=== PATIENT | female | born 1985 | race Caucasian/White ===

== ENCOUNTER 2017-03-21 18:44 | Emergency (ER) | payer MEDICAID ==
[~2017-03-21] VITALS: Ht 160 cm; Wt 122.1 kg
[~2017-03-21 18:44] MED LIST: CYCL-1 PO; FLOOS OT; IBUP-1051 PO; IBUP-1984 PO; NO HOME MEDS; ZOF4T PO
[2017-03-21] MEDS ORDERED: acetaminophen 325mg tablet PO STA (19:34)
[2017-03-21] MEDS ORDERED: normal saline 1000ML IV soln IV ONE (19:35)
[2017-03-21 20:40] LABS: BASOPHILS % (AUTO) 0.1 % (0-1); EOSINOPHILS % (AUTO) 0.1 % (0-6); HEMATOCRIT 38.3 % (35.0-45.0); HEMOGLOBIN 12.6 g/dl (12.0-16.0); LYMPHOCYTES # (AUTO) 1.5 X10'3 (1.1-4.8); LYMPHOCYTES % (AUTO) 23.7 % (21-51); MEAN CORPUSCULAR HGB CONC 32.8 % (33.0-36.5); MEAN CORPUSCULAR VOLUME 79.3 FL (78-98); MEAN PLATELET VOLUME 8.1 FL (7.4-10.4); MONOCYTES # (AUTO) 0.7 X10'3 (0-0.9); MONOCYTES % (AUTO) 10.4 % (2-12); NEUTROPHILS # (AUTO) 4.1 X10'3 (1.8-7.7); NEUTROPHILS % (AUTO) 65.7 % (42-75); PLATELET COUNT 236 X10'3 (140-440); RED BLOOD COUNT 4.83 X10'6 (4.20-5.60); RED CELL DISTRIBUTION WIDTH 15.1 % (11.5-14.5); WHITE BLOOD COUNT 6.3 X10'3 (4.5-11.0)
[2017-03-21 20:53] LABS: INR 1.1 INR; PARTIAL THROMBOPLASTIN TIME 29 SECONDS (22-32); PROTHROMBIN TIME 11.1 SECONDS (9.0-12.0)
[2017-03-21 20:54] LABS: ALANINE AMINOTRANSFERASE 24 U/L (12-78); ALBUMIN 3.2 G/DL (3.4-5.0); ALBUMIN/GLOBULIN RATIO 0.8 (1.1-1.5); ALKALINE PHOSPHATASE 73 IU/L (46-116); ANION GAP 8 (8-16); ASPARTATE AMINO TRANSFERASE 20 U/L (10-37); BILIRUBIN,TOTAL 0.2 MG/DL (0.1-1.0); BLOOD UREA NITROGEN 8 MG/DL (7-18); CHLORIDE 105 MMOL/L (99-107); CREATININE 0.89 MG/DL (0.40-0.90); GLUCOSE 103 MG/DL (70-104); POTASSIUM 3.3 MMOL/L (3.5-5.1); SODIUM 140 MMOL/L (135-145); TOTAL CARBON DIOXIDE 26.9 MMOL/L (24-32); TOTAL PROTEIN 7.4 G/DL (6.4-8.2); eGFR 75 ML/MIN
[2017-03-21] MEDS ORDERED: ACET-2119 PO (22:18)
[2017-03-21] MEDS ORDERED: GUAI120L55 PO (22:18)
[2017-03-21 22:54] VITALS: BP 120/54
[2017-03-23] MEDS ORDERED: BENZ-16 PO (23:21)
== END 2017-03-21 22:56 | disposition home or self-care (01) ==
LOC: ER 18:45
DX: B34.9 Viral infection, unspecified (principal); J06.9 Acute upper respiratory infection, unspecified; G89.29 Other chronic pain; M54.5 Low back pain; M85.80 Other specified disorders of bone density and structure, unspecified site; Z98.890 Other specified postprocedural states; Z88.2 Allergy status to sulfonamides
CPT/HCPCS: 36415; 80053; 85025; 85610; 85730; 87081; 87502; 87503; 87880; 96360; 99284; J7030

== ENCOUNTER 2017-10-06 12:07 | Emergency (ER) | payer MEDICAID ==
[~2017-10-06] VITALS: Ht 157.5 cm; Wt 121.8 kg
[~2017-10-06 12:07] MED LIST changes: +GUAI120L55 PO
[2017-10-06] MEDS ORDERED: IBUP-1984 PO (14:24)
[2017-10-06] MEDS ORDERED: CYCL-1 PO (14:24)
[2017-10-06 14:40] VITALS: BP 126/44
== END 2017-10-06 14:40 | disposition home or self-care (01) ==
LOC: ER 12:07
DX: M54.5 Low back pain (principal); G89.29 Other chronic pain; Z98.890 Other specified postprocedural states; Z88.2 Allergy status to sulfonamides; Z79.899 Other long term (current) drug therapy
CPT/HCPCS: 99283

== ENCOUNTER 2018-05-12 16:43 | Emergency (ER) | payer MEDICAID ==
[~2018-05-12] VITALS: Ht 162.6 cm; Wt 136.0 kg
[2018-05-12] MEDS ORDERED: LORazepam 2 mg/ml vial ONE (17:13)
[2018-05-12 17:25] LABS: BASOPHILS # (AUTO) 0.1 X10'3 (0-0.2); BASOPHILS % (AUTO) 0.5 % (0-1); EOSINOPHILS # (AUTO) 0.2 X10'3 (0-0.9); EOSINOPHILS % (AUTO) 1.7 % (0-6); HEMATOCRIT 42.4 % (35.0-45.0); LYMPHOCYTES # (AUTO) 4.5 X10'3 (1.1-4.8); LYMPHOCYTES % (AUTO) 39.2 % (21-51); MEAN CORPUSCULAR HEMOGLOBIN 26.9 PG (27.0-31.0); MEAN CORPUSCULAR VOLUME 81.5 FL (78-98); MEAN PLATELET VOLUME 9.1 FL (7.4-10.4); MONOCYTES # (AUTO) 0.7 X10'3 (0-0.9); MONOCYTES % (AUTO) 6.3 % (2-12); NEUTROPHILS % (AUTO) 52.3 % (42-75); PLATELET COUNT 292 X10'3 (140-440); RED CELL DISTRIBUTION WIDTH 14.4 % (11.5-14.5); WHITE BLOOD COUNT 11.5 X10'3 (4.5-11.0)
--- NOTE | 2018-05-12 17:35 | NUR ---
Patient crying and saying "just kill me, or let me go home so I can kill myself." RN gave patient an injection of 2 mg Ativan per [facility]ush who walked in to assess patient while patient is crying. Patient calmed down after the injection. Continue to monitor.
[2018-05-12 17:43] LABS: ALANINE AMINOTRANSFERASE 40 U/L (12-78); ALBUMIN 3.5 G/DL (3.4-5.0); ALBUMIN/GLOBULIN RATIO 0.7 (1.1-1.5); ALKALINE PHOSPHATASE 93 IU/L (46-116); ANION GAP 14 (8-16); BILIRUBIN,TOTAL 0.4 MG/DL (0.1-1.0); BLOOD UREA NITROGEN 14 MG/DL (7-18); BUN/CREATININE RATIO 16.3 (6.6-38.0); CHLORIDE 107 MMOL/L (99-107); CREATININE 0.86 MG/DL (0.40-0.90); GLUCOSE 91 MG/DL (70-104); SODIUM 146 MMOL/L (135-145); TOTAL CARBON DIOXIDE 25.2 MMOL/L (24-32); TOTAL PROTEIN 8.2 G/DL (6.4-8.2); eGFR 77 ML/MIN
[2018-05-12 17:45] LABS: ASPARTATE AMINO TRANSFERASE 31 U/L (10-37); POTASSIUM 4.6 MMOL/L (3.5-5.1)
[2018-05-12 17:51] LABS: ETHANOL < 0.010 GM/DL (0.0-0.010)
--- NOTE | 2018-05-12 18:51 | NUR ---
The patient is sleeping and did not respond when approached. She appears sedated from medications given earlier.
--- NOTE | 2018-05-12 22:06 | NUR ---
The patient appears to be asleep
--- NOTE | 2018-05-12 23:33 | NUR ---
The patient appears to be sleeping
--- NOTE | 2018-05-13 01:47 | NUR ---
Telepsychiatry consult requested
--- NOTE | 2018-05-13 01:52 | NUR ---
Attempted to wake patient for urine specimen but she appears to be sleeping soundly and only stirred slightly. BP 111/75 HR 84 and 02 sat 96% on room air.
--- NOTE | 2018-05-13 02:19 | NUR ---
Assumed care of patient, pt. continues to sleep, laying on her back, rr even and unlabored.
--- NOTE | 2018-05-13 04:11 | NUR ---
Pt. continues to sleep on her back, no s/s of distress.
--- NOTE | 2018-05-13 05:48 | NUR ---
With much prompting by staff r/t pt. resistance "I'm too tired," obtained urine sample and sent to lab. Pt. returned back to bed. Will endorese to AM shift need for Telepsych consult when pt. is awake.
[2018-05-13 06:04] LABS: CLARITY,URINE SLIGHTLY CLOUDY (Clear); COLOR,URINE YELLOW (Yellow); GLUCOSE, URINE NEGATIVE (Neg); KETONES,URINE NEGATIVE (Neg); LEUKOCYTE ESTERASE ,URINE NEGATIVE (Neg); NITRITES, URINE NEGATIVE (Neg); OCCULT BLOOD,URINE NEGATIVE (Neg); PROTEIN,URINE NEGATIVE (Neg); UROBILINOGEN,URINE 0.2 E.U/dL (0.2-1.0)
[2018-05-13 06:05] LABS: UA COLLECTION TYPE CLN CATCH MIDSTREAM
[2018-05-13 06:07] LABS: URINE HCG NEGATIVE (NEG)
[2018-05-13 06:15] LABS: BACTERIA,URINE NONE SEEN /HPF (Neg); MUCUS STRANDS MODERATE /LPF (Neg); RBC,URINE 0-2 /HPF (0-2); SQUAMOUS EPITHELIAL CELL,UR MODERATE /LPF (FEW); WBC,URINE 0-4 /HPF (0-4)
[2018-05-13 06:18] LABS: URINE AMPHETAMINE SCREEN POSITIVE (Neg); URINE BARBITUATE SCREEN NEGATIVE (Neg); URINE BENZODIAZEPINES SCREEN NEGATIVE (Neg); URINE CANNABINOID SCREEN NEGATIVE (Neg); URINE COCAINE SCREEN NEGATIVE (Neg); URINE METHADONE SCREEN NEGATIVE (Neg); URINE OPIATE SCREEN NEGATIVE (Neg); URINE PHENCYCLIDINE SCREEN NEGATIVE (Neg)
[2018-05-13] MEDS ORDERED: LORazepam 0.5 MG tablet PO ONE (13:05)
--- NOTE | 2018-05-13 14:03 | NUR ---
PT IS SLEEPING, RESPIRATIONS SPONTENOUS, EVEN, AND UNLABORED, NO S/S OF DISTRESS DISCOMFORT OR AGITATION AT THIS TIME.
[2018-05-13] MEDS ORDERED: LORazepam 2 mg/ml vial IM ONE (15:25)
--- NOTE | 2018-05-13 19:00 | NUR ---
The patient is sitting up on her and eating dinner. She is asking the arcade technician if she can go home.
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
--- NOTE | 2018-05-13 19:45 | NUR ---
Sister: Anastasia [phone]
[2018-05-13] MEDS ORDERED: ACET-2119 PO (20:32)
[2018-05-13] MEDS ORDERED: GABA-532 PO (20:32)
[2018-05-13] MEDS ORDERED: VENL37.55 PO (20:32)
--- NOTE | 2018-05-13 22:00 | NUR ---
The patient is currently sleeping.
--- NOTE | 2018-05-13 22:58 | NUR ---
The patient is sedated from the ativan and she still has not had her telepsych interview as ordered. Dr. Mcfadden made aware of the telepsych not being completed but her home med rec and been completed using the external med history and her home medications were ordered.
--- NOTE | 2018-05-14 00:15 | NUR ---
The patient appears to be sleeping
--- NOTE | 2018-05-14 01:57 | NUR ---
The patient is currently sleeping
--- NOTE | 2018-05-14 03:18 | NUR ---
Report to Osmar Arnold RN
--- NOTE | 2018-05-14 04:55 | NUR ---
The patient appears to be sleeping
--- NOTE | 2018-05-14 06:38 | NUR ---
Patient sleeping supine. No restlessness/distress observed. Continue to monitor.
[2018-05-14] MEDS ORDERED: gabapentin 300mg capsule PO SCH (08:00)
[2018-05-14] MEDS ORDERED: acetaminophen 325mg tablet PO SCH (08:00)
[2018-05-14] MEDS ORDERED: venlafaxine XR 37.5mg cap (Q24H) PO SCH (08:00)
--- NOTE | 2018-05-14 08:10 | NUR ---
RN spoke to patient and patient refused her medication. Patient states she is not going to [facility] because she has to pay her rent today. RN explained that she is on a legal hold and the RN cannot remove it. Continue to monitor.
[2018-05-14 09:05] VITALS: BP 114/76
--- NOTE | 2018-05-14 09:40 | NUR ---
Patient got dressed to go to [facility] [place]. Patient states she is missing her EBT card and her I.D. Patient states they were in her pocket and now they are go. Tech looked at the belongings list and didn't see cards listed. BRENDA Parker triaged patient who was brought by [employer] and doesn't remember cards when pt's clothes were removed, but RN did not do the belongings list. RN called [facility] [employer] who looked for items and did not find any.
--- NOTE | 2018-05-14 10:05 | NUR ---
Patient's and 3 children visiting patient. Patient is tearful but calm. Patient awaiting [facility] concrete mixer truck driver to drive patient to [place] [facility]. Continue to monitor.
== END 2018-05-14 10:45 ==
LOC: ER 16:44
DX: R45.851 Suicidal ideations (principal); F23 Brief psychotic disorder; G89.29 Other chronic pain; F32.9 Major depressive disorder, single episode, unspecified; R06.4 Hyperventilation; Z98.890 Other specified postprocedural states; Z88.2 Allergy status to sulfonamides; Z79.899 Other long term (current) drug therapy
CPT/HCPCS: 36415; 80053; 80305; 80320; 81001; 81025; 84443; 85025; 96372; 99285; J2060

== ENCOUNTER 2018-05-28 13:35 | Emergency (ER) | payer MEDICAID ==
[~2018-05-28 13:35] MED LIST changes: +ACET-2119 PO; -CYCL-1 PO; -FLOOS OT; +GABA-532 PO; -GUAI120L55 PO; -IBUP-1051 PO; -IBUP-1984 PO; -NO HOME MEDS; +VENL37.55 PO; -ZOF4T PO
--- NOTE | 2018-05-28 15:17 | NUR ---
NIL X3 [id number]
== END 2018-05-28 15:23 | disposition left against medical advice (07) ==
LOC: ER 13:36
DX: H57.89 Other specified disorders of eye and adnexa (principal); Z53.21 Procedure and treatment not carried out due to patient leaving prior to being seen by health care provider

== ENCOUNTER 2019-01-01 13:34 | Emergency (ER) | payer MEDICAID ==
[~2019-01-01] VITALS: Ht 158.8 cm; Wt 118.2 kg
[~2019-01-01 13:34] MED LIST changes: +ONDA8TAB6 PO
[2019-01-01 14:13] LABS: BASOPHILS # (AUTO) 0.1 X10'3 (0-0.2); BASOPHILS % (AUTO) 0.9 % (0-1); EOSINOPHILS # (AUTO) 0.2 X10'3 (0-0.9); EOSINOPHILS % (AUTO) 2.1 % (0-6); HEMOGLOBIN 13.4 g/dl (12.0-16.0); LYMPHOCYTES # (AUTO) 2.9 X10'3 (1.1-4.8); LYMPHOCYTES % (AUTO) 33.1 % (21-51); MEAN CORPUSCULAR HEMOGLOBIN 27.2 PG (27.0-31.0); MEAN CORPUSCULAR HGB CONC 33.5 g/dL (33.0-36.5); MEAN CORPUSCULAR VOLUME 81.1 FL (78-98); MEAN PLATELET VOLUME 7.6 FL (7.4-10.4); MONOCYTES # (AUTO) 0.5 X10'3 (0-0.9); MONOCYTES % (AUTO) 5.2 % (2-12); NEUTROPHILS # (AUTO) 5.2 X10'3 (1.8-7.7); NEUTROPHILS % (AUTO) 58.7 % (42-75); PLATELET COUNT 366 X10'3 (140-440); RED BLOOD COUNT 4.93 X10'6 (4.20-5.60); RED CELL DISTRIBUTION WIDTH 15.3 % (11.5-14.5); WHITE BLOOD COUNT 8.8 X10'3 (4.5-11.0)
[2019-01-01 14:28] LABS: ALANINE AMINOTRANSFERASE 45 U/L (12-78); ALBUMIN 3.3 G/DL (3.4-5.0); ALBUMIN/GLOBULIN RATIO 0.8 (1.1-1.5); ALKALINE PHOSPHATASE 79 IU/L (46-116); ANION GAP 8 (8-16); ASPARTATE AMINO TRANSFERASE 25 U/L (10-37); BILIRUBIN,TOTAL 0.2 MG/DL (0.1-1.0); BLOOD UREA NITROGEN 12 MG/DL (7-18); BUN/CREATININE RATIO 15.6 (6.6-38.0); CALCIUM 8.5 MG/DL (8.5-10.1); CHLORIDE 109 MMOL/L (99-107); CREATININE 0.77 MG/DL (0.40-0.90); GLUCOSE 96 MG/DL (70-104); POTASSIUM 3.6 MMOL/L (3.5-5.1); SODIUM 144 MMOL/L (135-145); TOTAL CARBON DIOXIDE 26.9 MMOL/L (24-32); TOTAL PROTEIN 7.5 G/DL (6.4-8.2); eGFR 87 ML/MIN
[2019-01-01 15:10] LABS: CLARITY,URINE SLIGHTLY CLOUDY (Clear); COLOR,URINE YELLOW (Yellow); GLUCOSE, URINE NEGATIVE (Neg); KETONES,URINE NEGATIVE (Neg); LEUKOCYTE ESTERASE ,URINE NEGATIVE (Neg); NITRITES, URINE NEGATIVE (Neg); OCCULT BLOOD,URINE NEGATIVE (Neg); PROTEIN,URINE NEGATIVE (Neg); URINE HCG NEGATIVE (NEG); UROBILINOGEN,URINE 0.2 E.U/dL (0.2-1.0)
[2019-01-01] MEDS ORDERED: acetaminophen 325mg tablet PO ONE (15:10)
[2019-01-01 15:17] LABS: UA COLLECTION TYPE CLN CATCH MIDSTREAM
[2019-01-01 15:31] LABS: SQUAMOUS EPITHELIAL CELL,UR MANY /LPF (FEW)
[2019-01-01 15:33] LABS: BACTERIA,URINE FEW /HPF (Neg); RBC,URINE 0-2 /HPF (0-2); TRANSITIONAL EPI CELLS,URINE FEW /HPF; WBC,URINE 0-4 /HPF (0-4)
[2019-01-01 15:35] LABS: MUCUS STRANDS MANY /LPF (Neg)
[2019-01-01 15:45] VITALS: BP 108/61
== END 2019-01-01 15:48 | disposition home or self-care (01) ==
LOC: ER 13:35
DX: R10.30 Lower abdominal pain, unspecified (principal); G89.29 Other chronic pain; F32.9 Major depressive disorder, single episode, unspecified; Z87.442 Personal history of urinary calculi; Z88.2 Allergy status to sulfonamides; Z79.899 Other long term (current) drug therapy
CPT/HCPCS: 36415; 80053; 81001; 81025; 85025; 85610; 99283

== ENCOUNTER 2019-08-07 09:22 | Emergency (ER) | payer MEDICAID ==
[~2019-08-07] VITALS: Ht 160 cm; Wt 120.5 kg
[2019-08-07 09:23] VITALS: BP 151/96
[2019-08-07] MEDS ORDERED: PENI500T2 PO (10:01)
[2019-08-07] MEDS ORDERED: ACET-3068 PO (10:01)
== END 2019-08-07 10:12 | disposition home or self-care (01) ==
LOC: ER 09:22
DX: K04.7 Periapical abscess without sinus (principal); G89.29 Other chronic pain; F32.9 Major depressive disorder, single episode, unspecified; Z87.442 Personal history of urinary calculi; Z98.890 Other specified postprocedural states; Z88.2 Allergy status to sulfonamides; Z88.5 Allergy status to narcotic agent; Z79.899 Other long term (current) drug therapy
CPT/HCPCS: 99283